=== PATIENT | female | born 1955 | race Caucasian/White ===

== ENCOUNTER 2021-10-19 13:55 | Emergency (ER) | payer MEDICARE, SELFPAY ==
[~2021-10-19] VITALS: Ht 165.1 cm; Wt 77.3 kg
[2021-10-19] MEDS ORDERED: NS 500 ML IV ONE (14:10)
[2021-10-19] MEDS ORDERED: MORPHINE 2 MG/ML 1ML VIAL IV PRN (14:10)
[2021-10-19] MEDS ORDERED: ONDANSETRON 4MG/2ML VIAL IV ONE (14:10)
[2021-10-19] MEDS ORDERED: ISOVUE-370 76% 100ML VIAL As Ordered ONE (14:29)
[2021-10-19 14:32] LABS: BASO % 0.2 % (0.0-1.0); EOS # 0.1 10^3/uL (0.0-0.5); EOS % 0.9 % (0.0-3.0); HEMOGLOBIN 12.1 g/dl (12.0-15.5); LYMPH # 1.1 10^3/uL (1.5-5.0); LYMPH % 13.1 % (24.0-44.0); MEAN CORPUSCULAR HEMOGLOBIN 30.6 pg (27.0-33.0); MEAN CORPUSCULAR HGB CONC 32.7 g/dl (32.0-36.5); MEAN CORPUSCULAR VOLUME 93.7 fl (80.0-96.0); MONO # 0.5 10^3/uL (0.0-0.8); MONO % 5.4 % (2.0-8.0); NEUTROPHILS # 6.8 10^3/uL (1.5-8.5); NEUTROPHILS % 79.5 % (36.0-66.0); PLATELET COUNT, AUTOMATED 265 10^3/uL (150-450); RED BLOOD COUNT 3.95 10^6/uL (4.00-5.40); WHITE BLOOD COUNT 8.5 10^3/uL (4.0-10.0)
[2021-10-19] MEDS ORDERED: LOSA25TA13 PO (14:39)
[2021-10-19] MEDS ORDERED: SIMV10TA21 PO (14:39)
[2021-10-19] MEDS ORDERED: EFFE75CA2 PO (14:39)
[2021-10-19] MEDS ORDERED: LEVO50TA5 PO (14:39)
[2021-10-19 14:43] LABS: INR 1.08; PARTIAL THROMBOPLASTIN TIME 24.9 SECONDS (25.9-37.0); PROTHROMBIN TIME 14.4 SECONDS (12.7-14.5)
[2021-10-19] MEDS ORDERED: LIDOCAINE W/EPINEPHRINE 1% 20ML VIAL As Ordered ONE (14:55)
[2021-10-19 14:57] LABS: ALT/SGPT 20 U/L (12-78); AMYLASE 35 U/L (25-115); BILIRUBIN,DIRECT 0.2 MG/DL (0.0-0.2); BILIRUBIN,TOTAL 0.8 MG/DL (0.2-1.0)
[2021-10-19 14:58] LABS: ALBUMIN 3.4 GM/DL (3.2-5.2); ETHYL ALCOHOL (ETHANOL) < 0.003 % (0.000-0.010); LIPASE 66 U/L (73-393); TOTAL PROTEIN 6.5 GM/DL (6.4-8.2)
[2021-10-19] MEDS ORDERED: BOOSTRIX/ADACEL VACCINE (DIPHTH/PERTUSS/ACELL/TETANUS) 0.5ML SYR IM ONE (15:00)
[2021-10-19] MEDS ORDERED: ceFAZolin SOD 2 GM in IV 1 EA IV ONE (15:00)
[2021-10-19 15:02] LABS: CK-MB VALUE MASS 3.8 NG/ML (<3.6); MB/CK RELATIVE INDEX 1.73 (< OR =4)
[2021-10-19] MEDS ORDERED: DERMABOND TOPICAL SKIN ADHESIVE TOP ONE (16:45)
[2021-10-19] MEDS ORDERED: IBUPROFEN 600MG TAB PO ONE (17:45)
[2021-10-19] MEDS ORDERED: CEPH500C PO (17:54)
[2021-10-19] MEDS ORDERED: IBUP-1022 PO (17:55)
[2021-10-19 18:30] VITALS: BP 146/68
== END 2021-10-19 18:45 | disposition home or self-care (01) ==
LOC: M ED 13:55 → EDBD 13:55 → M ED 18:45
DX: S09.90XA Unspecified injury of head, initial encounter (principal); S00.83XA Contusion of other part of head, initial encounter; S20.219A Contusion of unspecified front wall of thorax, initial encounter; S70.01XA Contusion of right hip, initial encounter; S80.10XA Contusion of unspecified lower leg, initial encounter; S40.029A Contusion of unspecified upper arm, initial encounter; S51.811A Laceration without foreign body of right forearm, initial encounter; S01.91XA Laceration without foreign body of unspecified part of head, initial encounter; W19.XXXA Unspecified fall, initial encounter; Y92.89 Other specified places as the place of occurrence of the external cause; I10 Essential (primary) hypertension; Z88.2 Allergy status to sulfonamides
CPT/HCPCS: 12013; 13121; 13122; 70450; 70486; 71045; 71260; 72125; 72170; 73090; 73130; 73502; 73552; 73590; 74177; 80047; 80076; 82077; 82150; 82550; 82553; 83605; 83690; 84484; 85025; 85610; 85730; 86850; 86900; 86901; 90471; 90715; 93005; 93041; 94760; 96365; 96366; 96375; 99285; J0690; J2270; J2405; Q9967

== ENCOUNTER → 2022-09-17 | Outpatient (CLI) | payer MEDICARE ==
[~2022-09-17] MED LIST: CEPH500C PO; EFFE75CA2 PO; IBUP-1022 PO; LEVO50TA5 PO; LOSA25TA13 PO; SIMV10TA21 PO
== END ==
LOC: M WHC 12:26
PROVIDERS: ATTEND Obstetrics & Gynecology
DX: Z12.31 Encounter for screening mammogram for malignant neoplasm of breast (principal)

== ENCOUNTER → 2023-10-29 | Outpatient (REF) | payer MEDICARE | LOC: M LAB REF 16:15 | PROVIDERS: ATTEND Nurse Practitioner Family | DX: R30.0 Dysuria (principal); R31.0 Gross hematuria ==

== ENCOUNTER → 2023-11-25 | Outpatient (REF) | payer MEDICARE ==
[2023-11-25 18:53] LABS: APPEARANCE, URINE CLEAR (CLEAR); BACTERIA, URINE AUTO NEGATIVE (NEGATIVE); BILIRUBIN, URINE AUTO NEGATIVE (NEGATIVE); BLOOD, URINE BLOOD 1+ (NEGATIVE); COLOR, URINE YELLOW (YELLOW); GLUCOSE, URINE (UA) AUTO NEGATIVE (NEGATIVE); KETONE, URINE AUTO NEGATIVE (NEGATIVE); LEUKOCYTE ESTERASE, URINE AUTO NEGATIVE (NEGATIVE); MUCUS, URINE SMALL (NEGATIVE); NITRITE, URINE AUTO NEGATIVE (NEGATIVE); PROTEIN, URINE AUTO NEGATIVE (NEGATIVE); RBC, URINE AUTO 4 /HPF (0-3); SPECIFIC GRAVITY URINE AUTO 1.017 (1.002-1.035); SQUAMOUS EPITHELIAL CELL UR AU 4 /HPF (0-6); UROBILINOGEN, URINE AUTO 0.2 mg/dL (0.0-2.0); WBC, URINE AUTO 1 /HPF (0-3)
== END ==
LOC: M SMT 16:59
PROVIDERS: ATTEND Urology
DX: R31.0 Gross hematuria (principal)

== ENCOUNTER → 2023-12-21 | Outpatient (CLI) | payer MEDICARE | LOC: M RAD 12:07 | PROVIDERS: ATTEND Urology | DX: R31.0 Gross hematuria (principal) ==

== ENCOUNTER → 2024-02-08 | Outpatient (REF) | payer MEDICARE ==
[2024-02-08 17:33] LABS: APPEARANCE, URINE HAZY (CLEAR); BACTERIA, URINE AUTO 1+ (NEGATIVE); BILIRUBIN, URINE AUTO NEGATIVE (NEGATIVE); BLOOD, URINE BLOOD 3+ (NEGATIVE); COLOR, URINE YELLOW (YELLOW); GLUCOSE, URINE (UA) AUTO NEGATIVE (NEGATIVE); KETONE, URINE AUTO NEGATIVE (NEGATIVE); LEUKOCYTE ESTERASE, URINE AUTO 2+ (NEGATIVE); NITRITE, URINE AUTO NEGATIVE (NEGATIVE); PROTEIN, URINE AUTO 1+ mg/dL (NEGATIVE); RBC, URINE AUTO TNTC /HPF (0-3); SPECIFIC GRAVITY URINE AUTO 1.013 (1.002-1.035); SQUAMOUS EPITHELIAL CELL UR AU 3 /HPF (0-6); UROBILINOGEN, URINE AUTO 0.2 mg/dL (0.0-2.0); WBC, URINE AUTO 53 /HPF (0-3)
== END ==
LOC: M SFHCCLAY 11:56
PROVIDERS: ATTEND Urology
DX: R31.0 Gross hematuria (principal)